=== PATIENT | male | born 1990 | race Caucasian/White ===

== ENCOUNTER → 2020-06-01 14:06 | Outpatient (CLI) | payer OTHER, SELFPAY ==
[2020-06-01] MEDS: COVID-19 VACC(MODERNA-1)/PF 100 MCG/0.5 ML VIAL IM (14:12)
== END ==
PROVIDERS: Visit Provider Internal Medicine
DX: Z23 Encounter for immunization (principal)
CPT/HCPCS: 0011A; 91301

== ENCOUNTER → 2020-06-29 14:20 | Outpatient (CLI) | payer OTHER, SELFPAY ==
[2020-06-29] MEDS: COVID-19 VACC #2, MRNA(MOD) 100 MCG/0.5 ML VIAL IM (14:28)
== END ==
PROVIDERS: Visit Provider Internal Medicine
DX: Z23 Encounter for immunization (principal)
CPT/HCPCS: 0012A; 91301

== ENCOUNTER 2023-11-06 22:53 | Emergency (ER) | payer OTHER, SELFPAY ==
[2023-11-06 22:53] VITALS: BP 148/99; PULSE 126; RESP 18; TEMP 37.3; O2SAT 98; BMI 22.8
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
[2023-11-06 23:11] VITALS: PULSE 85; O2SAT 99
[2023-11-06 23:12] VITALS: BP 82/53; PULSE 84; O2SAT 98
[2023-11-06] MEDS: SODIUM CHLORIDE 0.9% 1,000 ML 1000 ML IV (23:12)
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
[2023-11-06 23:17] VITALS: BP 113/77; PULSE 98; O2SAT 96
[2023-11-06] MEDS: ONDANSETRON 4 MG/2 ML INJ IV (23:28)
[2023-11-06 23:30] VITALS: BP 134/91; PULSE 91; O2SAT 98
[2023-11-06] MEDS: KETOROLAC 30 MG/ML VIAL 15 MG IV (23:30)
[2023-11-06 23:45] VITALS: BP 137/95; PULSE 88; O2SAT 100
[2023-11-06] MEDS: MORPHINE 4 MG/ML INJ IV (23:50)
[2023-11-07] VITALS (10 sets, daily range): BP systolic 136–156; BP diastolic 82–101; PULSE 83–96; RESP 14–32; O2SAT 97–100
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
[2023-11-07] MEDS: propofoL 200 MG/20 ML VIAL 70 MG IV (00:41)
--- NOTE | 2023-11-07 00:44 | DI.RAD.S_ITS ---
PROCEDURE: XR SHOULDER LT 1V INDICATIONS: post reduction TECHNIQUE: Single-view of the shoulder were acquired. COMPARISON: [facility], CR, XR SHOULDER LT MIN 2V, 11/06/2023, 23:20. FINDINGS: Bones: Status post closed reduction of previously dislocated left shoulder. Post reduction alignment is anatomic on this single AP view. No fractures visualized. No suspicious bony lesions. Visualized ribs appear intact. Soft tissues: No suspicious soft tissue calcifications. IMPRESSION: Status post closed reduction of previously dislocated left shoulder back in anatomic alignment. Dictated by: Delmar Youngblood M.D. on 11/07/2023 at 1:01 Approved by: Delmar Youngblood M.D. on 11/07/2023 at 1:02
[2023-11-07] MEDS: propofoL 200 MG/20 ML VIAL 75 MG IV (01:16)
== END 2023-11-07 01:53 | disposition home or self-care (01) ==
PROVIDERS: Emergency Provider Emergency Medicine
DX: S43.085A Other dislocation of left shoulder joint, initial encounter (principal); Y04.2XXA Assault by strike against or bumped into by another person, initial encounter; Y99.0 Civilian activity done for income or pay
CPT/HCPCS: 23650; 36415; 71045; 73020; 73030; 96374; 96375; 99283; 99284; J1885; J2270; J2405; J2704